=== PATIENT | male | born 1965 | race Two or more races ===

== ENCOUNTER 2018-06-10 19:47 | Emergency (ER) | payer SELFPAY ==
--- NOTE | 2018-06-10 20:10 | EDM.PDOC ---
ED HPI GENERAL MEDICAL PROBLEM - General Chief Complaint: Chest Pain Stated Complaint: CHEST PAINS Time Seen by Provider: 06/10/18 19:51 Source of Information: Reports: Patient, Police, RN Notes Reviewed History Limitations: Reports: No Limitations - History of Present Illness INITIAL COMMENTS - FREE TEXT/NARRATIVE: Pieter is an alert and oriented male presenting with complaints of left sided chest pain that worsens with deep breathing. He denies SOB,difficulty breathing, fever, chills, nausea, vomiting or diaphoresis. He was given 4 baby [employer]. Chest Pain Score (Numeric/FACES): 5 - Related Data Allergies Allergy/AdvReac Type Severity Reaction Status Date / Time No Known Allergies Allergy Verified 06/10/18 19:51 Home Meds: Home Meds NK [No Known Home Meds] 06/10/18 [History] Past Medical History Cardiovascular History: Reports: Other (See Below) Other Cardiovascular History: States that he had a temporary blockage but when he went to have the stent placed it was ok and they didnt need to place one. Social & Family History - Tobacco Use Smoking Status *Q: Heavy Tobacco Smoker Years of Tobacco use: 32 Packs/Tins Daily: 1 - Caffeine Use Caffeine Use: Reports: Coffee, Soda - Recreational Drug Use Recreational Drug Use: Yes Recreational Drug Type: Reports: Marijuana/Hashish ED ROS GENERAL - Review of Systems Review Of Systems: See Below Constitutional: Denies: Fever, Chills, Malaise, Weakness HEENT: Reports: No Symptoms Respiratory: Reports: Other (Left sided chest pain with deep breathing. ). Denies: Shortness of Breath, Wheezing, Cough, Sputum, Hemoptysis Cardiovascular: Reports: Chest Pain. Denies: Blood Pressure Problem, Dyspnea on Exertion, Edema, Lightheadedness, Palpitations, PND, Syncope Endocrine: Reports: No Symptoms GI/Abdominal: Reports: No Symptoms : Reports: No Symptoms Musculoskeletal: Reports: No Symptoms Skin: Reports: No Symptoms Neurological: Reports: No Symptoms Psychiatric: Reports: No Symptoms Hematologic/Lymphatic: Reports: No Symptoms Immunologic: Reports: No Symptoms ED EXAM, GENERAL - Physical Exam Exam: See Below Free Text/Narrative:: Pieter is an alert and oriented 53 year old male presenting with chest pain. He reports the pain is sharp and comes with deep breathing. He denies SOB, radiation of chest pain or other concerns. He reports past history of chest pain with angiogram - no stent placement. Exam Limited By: No Limitations General Appearance: Alert, WD/WN, No Apparent Distress Eye Exam: Bilateral Eye: EOMI, Normal Inspection, PERRL Ears: Normal External Exam, Normal Canal, Hearing Grossly Normal, Normal TMs Ear Exam: Bilateral Ear: Auricle Normal, Canal Normal, TM normal Nose: Normal Inspection, Normal Mucosa, No Blood Throat/Mouth: Normal Inspection, Normal Lips, Normal Teeth, Normal Gums, Normal Oropharynx, Normal Voice, No Airway Compromise Head: Atraumatic, Normocephalic Neck: Normal Inspection, Supple, Non-Tender, Full Range of Motion, Other ( Thyroid feels slightly enlarged, however patient is thin. ) Respiratory/Chest: No Respiratory Distress, Lungs Clear, Normal Breath Sounds, No Accessory Muscle Use, Chest Non-Tender, Other (Left sided chest pain elicited with deep breathing. ) Cardiovascular: Normal Peripheral Pulses, Regular Rate, Rhythm, No Edema, No Gallop, No JVD, No Murmur, No Rub Peripheral Pulses: 2+: Radial (L), Radial (R), Dorsalis Pedis (L), Dorsalis Pedis (R) GI/Abdominal: Normal Bowel Sounds, Soft, Non-Tender, No Organomegaly, No Distention, No Mass Back Exam: Normal Inspection, Full Range of Motion. No: CVA Tenderness (R), CVA Tenderness (L) Extremities: Normal Inspection, Normal Range of Motion, Non-Tender, No Pedal Edema, Normal Capillary Refill Neurological: Alert, Oriented, CN II-XII Intact, Normal Cognition, Normal Gait, Normal Reflexes, No Motor/Sensory Deficits Psychiatric: Normal Affect, Normal Mood Skin Exam: Warm, Dry, Intact, Normal Color, No Rash Lymphatic: No Adenopathy EKG INTERPRETATION EKG Date: 06/10/18 Time: 19:45 Rhythm: NSR Rate (Beats/Min): 85 [place]: Normal P-Wave: Present QRS: LBBB ST-T: Normal QT: Normal Comparison: Other: (Only able to obtain old EKG report dated 11/26/11, it states: Rate 62 bpm, normal sinus, left anterior fascicular block, anteroseptal infarct age undeterninate.) Course - Vital Signs Last Recorded V/S: Last Vital Signs Temp 37.1 C 06/10/18 20:00 Pulse 82 06/10/18 20:47 Resp 13 06/10/18 20:47 BP 123/76 06/10/18 20:47 Pulse Ox 95 06/10/18 20:47 - Orders/Labs/Meds Orders: Active Orders 24 hr Category Date Time Status EKG Documentation Completion [RC] ASDIRECTED Care 06/10/18 20:03 Active Chest 2V [CR] Stat Exams 06/10/18 20:03 Taken EKG 12 Lead [EK] Routine Ther 06/10/18 20:03 Ordered Labs: Laboratory Tests 06/10/18 06/10/18 Range/Units 20:15 20:15 WBC 8.5 (4.5-11.0) K/uL RBC 4.58 (4.30-5.90) M/uL Hgb 13.7 (12.0-15.0) g/dL Hct 40.3 (40.0-54.0) % MCV 88 (80-98) fL MCH 30 (27-31) pg MCHC 34 (32-36) % Plt Count 365 (150-400) K/uL Neut % (Auto) 53 (36-66) % Lymph % (Auto) 36 (24-44) % [place]cher % (Auto) 9 H (2-6) % Eos % (Auto) 2 (2-4) % Baso % (Auto) 0 (0-1) % Sodium 142 (140-148) mmol/L Potassium 3.9 (3.6-5.2) mmol/L Chloride 106 (100-108) mmol/L Carbon Dioxide 30 (21-32) mmol/L Anion Gap 5.7 (5.0-14.0) mmol/L BUN 12 (7-18) mg/dL Creatinine 1.0 (0.8-1.3) mg/dL Est Cr Clr Drug Dosing 83.47 mL/min Estimated GFR (MDRD) > 60 (>60) Glucose 103 (74-106) mg/dL Calcium 8.6 (8.5-10.1) mg/dL Total Bilirubin 0.1 L (0.2-1.0) mg/dL AST 18 (15-37) U/L ALT 22 (12-78) U/L Alkaline Phosphatase 99 (46-116) U/L Troponin I < 0.017 (0.000-0.056) ng/mL Total Protein 6.4 (6.4-8.2) g/dL Albumin 3.3 L (3.4-5.0) g/dL Globulin 3.1 (2.3-3.5) g/dL Albumin/Globulin Ratio 1.1 L (1.2-2.2) TSH, Ultra Sensitive 0.670 (0.358-3.740) uIU/mL Patient lab work and chest x-ray reviewed with Dr. Waite, she is in agreement with plan. Patient suffering from pleurisy, he will be discharged, provided toradol 60mg IM. Meds: Medications Discontinued Medications Generic Name Dose Route Start Last Admin Trade Name Freq PRN Reason Stop Dose Admin Ketorolac Tromethamine 60 mg 06/10/18 21:14 Toradol IM 06/10/18 21:15 ONETIME ONE - Radiology Interpretation Free Text/Narrative:: Chest x-ray wet read, no acute findings. Radiologist read pending. Departure - Departure Time of Disposition: 21:14 Disposition: Home, Self-Care 01 Condition: Good Clinical Impression: Pleurisy Referrals: PCP,None [Primary Care Provider] - Forms: ED Department Discharge Additional Instructions: You have been evaluated and treated for pleurisy. Pleurisy is inflammation of the pleura. The pleural space, as a thin fluid- filled space between the lung and the thoracic cavity, enables the smooth frictionless movement of the lung during respiration. It is lined by 2 layers of pleura: the visceral (covering the lung) and the parietal (covering the thoracic cage). Pain receptors are present on the parietal pleura. Irritation and inflammation of the pleura presents with symptoms of sharp lancing, fleeting pain in the chest that is exacerbated by deep breathing, coughing, sneezing. To help with your pain you can take ibuprofen 600 to 800 mg by mouth three times a day. You can also take acetaminophen as needed for pain. It would be best for you to stop use of smoking tobacco. Follow up with your primary provider as needed. Return to the emergency room for worsening, issues or concerns. - My Orders Last 24 Hours: My Active Orders 06/10/18 20:03 EKG Documentation Completion [RC] ASDIRECTED Chest 2V [CR] Stat EKG 12 Lead [EK] Routine - Assessment/Plan Last 24 Hours: My Active Orders 06/10/18 20:03 EKG Documentation Completion [RC] ASDIRECTED Chest 2V [CR] Stat EKG 12 Lead [EK] Routine Assessment:: Pleurisy Plan: Patient evaluated and treated for pleurisy. He was given toradol 60mg IM in the emergency room for pain. To help with pain can take ibuprofen 600 to 800 mg by mouth three times a day starting tomorrow. He can also take acetaminophen as needed for pain. It would be best to stop use of smoking tobacco. Follow up with primary provider as needed. Return to the emergency room for worsening, issues or concerns.
[2018-06-10] MEDS ORDERED: Ketorolac 60 MG/2 ML SDV IM ONE (21:14)
--- NOTE | 2018-06-12 10:06 | CR ---
CHEST: 2 view CLINICAL HISTORY:Chest pain COMPARISON:None FINDINGS: Heart size and pulmonary vascularity are normal. No infiltrates are seen. There is no effu maryan. There are a few scattered granulomata. IMPRESSION: No acute cardiopulmonary process Previous granulomatous exposure
== END 2018-06-10 21:33 | disposition home or self-care (01) ==
LOC: JP.ED 19:47
DX: R09.1 Pleurisy (principal); F17.210 Nicotine dependence, cigarettes, uncomplicated
CPT/HCPCS: 36415; 71046; 80053; 84443; 84484; 85025; 93005; 96374; 99285; J1885